=== PATIENT | female | born 2000 | race Hispanic/Latino ===

== ENCOUNTER 2018-11-20 23:37 | Emergency (ER) | payer BC ==
[2018-11-21] MEDS ORDERED: IBUPROFEN 400 MG TAB ONE (00:04)
[2018-11-21 00:47] LABS: Urine Blood 3+ (NEG); Urine Glucose NEGATIVE (NEG); Urine Protein 2+ (NEG); Urine Specific Gravity 1.025 (1.005-1.030)
[2018-11-21 00:49] LABS: Urine Bacteria 20-50 /HPF (<20); Urine Culture Reflex Order REFLEXED; Urine RBC 20-50 /HPF (NONE SEEN)
--- NOTE | 2018-11-21 01:15 | EDPHYS ---
Physician Documentation [facility] Name: Rosa Isela Cedeño Age: 18 yrs Sex: Female : 2000 Arrival Date: 11/20/2018 Time: 23:39 Bed 27 Private MD: Elizabeth Manzano K ED Physician Odilon Dove HPI: 11/21 01:18 This 18 yrs old Female presents to ER via Ambulatory with complaints of Fever, snw Chills, Vomiting, Shortness Of Breath. 01:18 The patient reports fever, that was measured at 104 degrees Fahrenheit. Onset: The snw symptoms/episode began/occurred suddenly, 2 day(s) ago, and became persistent. Modifying factors: there are no obvious modifying factors. Associated signs and symptoms: Pertinent positives: chills, decreased appetite, headache. Severity of symptoms: At their worst the symptoms were moderate severe. The patient has not experienced similar symptoms in the past. The patient has not recently seen a physician. Historical: - Allergies: 11/20 23:43 No Known Allergies; la1 - Home Meds: 23:43 None [Active]; la1 - PMHx: 23:43 None; la1 - PSHx: 23:43 Tonsillectomy; la1 - Immunization history:: Adult Immunizations up to date. - Social history:: Smoking status: Patient/guardian denies using tobacco. - Ebola Screening: : No symptoms or risks identified at this time. ROS: 11/21 01:17 Eyes: Negative for injury, pain, redness, and discharge, ENT: Negative for injury, snw pain, and discharge, Neck: Negative for injury, pain, and swelling, Cardiovascular: Negative for chest pain, palpitations, and edema, Respiratory: Negative for shortness of breath, cough, wheezing, and pleuritic chest pain. Back: Negative for injury and pain, : Negative for injury, bleeding, discharge, and swelling, MS/Extremity: Negative for injury and deformity, Skin: Negative for injury, rash, and discoloration. Constitutional: Positive for body aches, fever, malaise. Abdomen/GI: Positive for vomiting, x 1. Neuro: Positive for headache. Exam: 01:13 Constitutional: This is a well developed, well nourished patient who is awake, alert, snw and in no acute distress. Head/Face: Normocephalic, atraumatic. Eyes: Pupils equal round and reactive to light, extra-ocular motions intact. Lids and lashes normal. Conjunctiva and sclera are non-icteric and not injected. Cornea within normal limits. Periorbital areas with no swelling, redness, or edema. ENT: Nares patent. No nasal discharge, no septal abnormalities noted. Tympanic membranes are normal and external auditory canals are clear. Oropharynx with no redness, swelling, or masses, exudates, or evidence of obstruction, uvula midline. Mucous membranes moist. Neck: Trachea midline, no thyromegaly or masses palpated, and no cervical lymphadenopathy. Supple, full range of motion without nuchal rigidity, or vertebral point tenderness. No Meningismus. Chest/axilla: Normal chest wall appearance and motion. Nontender with no deformity. No lesions are appreciated. Cardiovascular: Regular rate and rhythm with a normal S1 and S2. No gallops, murmurs, or rubs. Normal PMI, no JVD. No pulse deficits. Respiratory: Lungs have equal breath sounds bilaterally, clear to auscultation and percussion. No rales, rhonchi or wheezes noted. No increased work of breathing, no retractions or nasal flaring. Abdomen/GI: Soft, non-tender, with normal bowel sounds. No distension or tympany. No guarding or rebound. No evidence of tenderness throughout. Back: No spinal tenderness. No costovertebral tenderness. Full range of motion. Skin: Warm, dry with normal turgor. Normal color with no rashes, no lesions, and no evidence of cellulitis. MS/ Extremity: Pulses equal, no cyanosis. Neurovascular intact. Full, normal range of motion. Neuro: Awake and alert, GCS 15, oriented to person, place, time, and situation. Cranial nerves II-XII grossly intact. Motor strength 5/5 in all extremities. Sensory grossly intact. Cerebellar exam normal. Normal gait. Psych: Awake, alert, with orientation to person, place and time. Behavior, mood, and affect are within normal limits. Vital Signs: 11/20 23:43 BP 150 / 79; Pulse 145; Resp 18; Temp 104.1; Pulse Ox 97% on R/A; Weight 86.18 kg; la1 Height 5 ft. 5 in. (165.10 cm); 11/21 00:53 Pulse 114; Resp 16; Temp 100.4; Pulse Ox 100% on R/A; la1 00:53 BP 120 / 53; la1 11/20 23:43 Body Mass Index 31.62 (86.18 kg, 165.10 cm) la1 MDM: 11/20 23:53 Patient medically screened. snw 11/21 01:17 Data reviewed: vital signs, nurses notes. Data interpreted: Pulse oximetry: on room air snw is 100 %. Interpretation: normal. Counseling: I had a detailed discussion with the patient and/or guardian regarding: the historical points, exam findings, and any diagnostic results supporting the discharge/admit diagnosis, lab results, radiology results, the need for outpatient follow up, to return to the emergency department if symptoms worsen or persist or if there are any questions or concerns that arise at home. Special discussion: Based on the patient's Hx, exam, and Dx evaluation, there is no indication for emergent surgery or inpatient Tx. It is understood by the patient/guardian that if the Sx's persist or worsen they need to return immediately for re-evaluation. Based on the history and exam findings, there is no indication for further emergent testing or inpatient evaluation. I discussed with the patient/guardian the need to see the primary care provider for further evaluation of the symptoms. 11/20 23:50 Order name: Urine Microscopic Only; Complete Time: 00:58 la1 11/20 23:52 Order name: Flu; Complete Time: 00:42 snw 11/20 23:52 Order name: Strep; Complete Time: 00:42 snw 11/21 00:04 Order name: Urine Dipstick--Ancillary (enter results); Complete Time: 00:48 ar5 11/21 00:04 Order name: Urine --Ancillary (enter results); Complete Time: 00:48 ar5 11/21 00:38 Order name: Throat Culture EDNY 11/20 23:50 Order name: Urine Dipstick-Ancillary (obtain specimen); Complete Time: 00:02 la11/20 23:50 Order name: Urine Test (obtain specimen); Complete Time: 00:02 la11/20 23:52 Order name: Chest Pa And Lat (2 Views) XRAY snw 11/21 00:57 Order name: Urine Culture EDMS Administered Medications: 11/20 23:51 Drug: Ibuprofen 800 mg Route: PO; la1 11/21 00:53 Follow up: Response: No adverse reaction; Temperature is decreased la1 01:45 Drug: Rocephin (cefTRIAXone) 1 grams Route: IM; Site: left gluteus; ak1 01:46 Follow up: Response: No adverse reaction ak1 01:45 Drug: Macrobid 100 mg Route: PO; ak1 01:45 Follow up: Response: Medication administered at discharge. ak1 02:13 Drug: Tylenol #3 (300 mg-30 mg) 1 tablet Route: PO; ak1 02:14 Follow up: Response: No adverse reaction; Medication administered at discharge. ak1 Disposition: 11/21/18 01:14 Discharged to Home. Impression: Urinary tract infection, site not specified, Fever presenting with conditions classified elsewhere. - Condition is Stable. - Discharge Instructions: Fever, Adult, Urinary Tract Infection, Adult, Rehydration, Adult. - Prescriptions for Augmentin 875- 125 mg Oral Tablet - take 1 tablet by ORAL route every 12 hours for 10 days; 20 tablet. Macrobid 100 mg Oral Capsule - take 1 capsule by ORAL route every 12 hours for 10 days; 20 capsule. promethazine 25 mg Oral Tablet - take 1 tablet by ORAL route every 6 hours As needed; 20 tablet. - Work release form, Medication Reconciliation Form, Thank You Letter, Antibiotic Education, Prescription Opioid Use form. - Follow up: Emergency Department; When: As needed; Reason: Worsening of condition. Follow up: Elizabeth Manzano MD; When: 2 - 3 days; Reason: Recheck today's complaints, Continuance of care, Re-evaluation by your physician. Signatures: Dispatcher [employer] EDNY Divya Mcnamara, AIYANA-C MUSEUM DIRECTOR-CsnCelm Jackson RN RN la1 Dee Maria RN RN ak1 Corrections: (The following items were deleted from the chart) 02:14 01:14 11/21/2018 01:14 Discharged to Home. Impression: Urinary tract infection, site ak1 not specified; Fever presenting with conditions classified elsewhere. Condition is Stable. Forms are Medication Reconciliation Form, Thank You Letter, Antibiotic Education, Prescription Opioid Use. Follow up: Emergency Department; When: As needed; Reason: Worsening of condition. Follow up: Elizabeth Manzano; When: 2 - 3 days; Reason: Recheck today's complaints, Continuance of care, Re-evaluation by your physician. snw
--- NOTE | 2018-11-21 01:15 | ER ---
Nurse's Notes [facility] Name: Rosa Isela Cedeño Age: 18 yrs Sex: Female : 2000 Arrival Date: 11/20/2018 Time: 23:39 Bed 27 Private MD: Elizabeth Manzano K Diagnosis: Urinary tract infection, site not specified;Fever presenting with conditions classified elsewhere Presentation: 11/20 23:44 Presenting complaint: Patient states: QUEEN and fever for the last two days, alternating la1 motrin and tylenol at home, last dose of tylenol at 2130. Transition of care: patient was not received from another setting of care. Onset of symptoms was November 20, 2018. Risk Assessment: Do you want to hurt yourself or someone else? Patient reports no desire to harm self or others. Initial Sepsis Screen: Does the patient meet any 2 criteria? Temp <36.0*C (96.8*F)) or > 38.3*C (100.9*F). HR > 90 bpm. Does the patient have a suspected source of infection? Yes: Other: Headache. Care prior to arrival: None. 23:44 Method Of Arrival: Ambulatory la1 23:44 Acuity: ARY 2 la1 Triage Assessment: 11/21 01:54 General: Appears in no apparent distress. Behavior is calm, cooperative. Pain: ak1 Complains of pain in scalp. EENT: No signs and/or symptoms were reported regarding the EENT system. Neuro: Level of Consciousness is awake, alert, obeys commands, Oriented to person, place, time, situation, Applications Coordinator are equal bilaterally Moves all extremities. Gait is steady, Speech is normal, Facial symmetry appears normal. Cardiovascular: No deficits noted. Respiratory: No deficits noted. GI: Reports nausea. : No signs and/or symptoms were reported regarding the genitourinary system. Derm: Reports fever. Musculoskeletal: No signs and/or symptoms reported regarding the musculoskeletal system. Historical: - Allergies: 11/20 23:43 No Known Allergies; la1 - Home Meds: 23:43 None [Active]; la1 - PMHx: 23:43 None; la1 - PSHx: 23:43 Tonsillectomy; la1 - Immunization history:: Adult Immunizations up to date. - Social history:: Smoking status: Patient/guardian denies using tobacco. - Ebola Screening: : No symptoms or risks identified at this time. Screenin:53 Abuse screen: Denies threats or abuse. Nutritional screening: No deficits noted. la1 Tuberculosis screening: No symptoms or risk factors identified. Fall Risk None identified. Assessment: 23:52 General: Appears in no apparent distress. Behavior is calm, cooperative. Pain: Denies la1 pain. Neuro: Level of Consciousness is awake, alert, obeys commands, Oriented to person, place, time, situation, Applications Coordinator are equal bilaterally Neck is supple, full ROM. Cardiovascular: Capillary refill < 3 seconds Patient's skin is warm and dry. Respiratory: Airway is patent Respiratory effort is even, unlabored, Respiratory pattern is regular, symmetrical. GI: Abdomen is non-distended, obese. : No signs and/or symptoms were reported regarding the genitourinary system. EENT: Throat is pink. Vital Signs: 23:43 BP 150 / 79; Pulse 145; Resp 18; Temp 104.1; Pulse Ox 97% on R/A; Weight 86.18 kg; la1 Height 5 ft. 5 in. (165.10 cm); 11/21 00:53 Pulse 114; Resp 16; Temp 100.4; Pulse Ox 100% on R/A; la1 00:53 BP 120 / 53; la1 11/20 23:43 Body Mass Index 31.62 (86.18 kg, 165.10 cm) la1 ED Course: 11/20 23:39 Patient arrived in ED. am2 23:39 Elizabeth Manzano MD is Private Physician. am2 23:44 Arm band placed on left wrist. la1 23:46 Triage completed. la1 23:51 Divya Mcnamara FNP-C is PHCP. snw 23:51 Odilon Dove MD is Attending Physician. snw 23:53 Patient has correct armband on for positive identification. la1 11/21 00:26 Chest Pa And Lat (2 Views) XRAY In Process Unspecified. EDMS 01:06 Dee Maria, RN is Primary Nurse. ak1 01:14 Elizabeth Manzano MD is Referral Physician. snw 01:53 No provider procedures requiring assistance completed. Patient did not have IV access ak1 during this emergency room visit. Administered Medications: 11/20 23:51 Drug: Ibuprofen 800 mg Route: PO; la1 11/21 00:53 Follow up: Response: No adverse reaction; Temperature is decreased la1 01:45 Drug: Rocephin (cefTRIAXone) 1 grams Route: IM; Site: left gluteus; ak1 01:46 Follow up: Response: No adverse reaction ak1 01:45 Drug: Macrobid 100 mg Route: PO; ak1 01:45 Follow up: Response: Medication administered at discharge. ak1 02:13 Drug: Tylenol #3 (300 mg-30 mg) 1 tablet Route: PO; ak1 02:14 Follow up: Response: No adverse reaction; Medication administered at discharge. ak1 Outcome: 01:14 Discharge ordered by . sntj 01:53 Discharged to home ambulatory, with family. ak1 01:53 Condition: stable 01:53 Discharge instructions given to patient, family, Instructed on discharge instructions, follow up and referral plans. no drinking with medication, no driving heavy equipment, medication usage, safe sex practices, Demonstrated understanding of instructions, follow-up care, medications, Prescriptions given X 3. 02:14 Patient left the ED. ak1 Signatures: Dispatcher [employer] EDMS Divya Mcnamara, [employer] NETWORK CONTROL TECHNICIAN-CsnClem Jackson RN RN Dee Garcia RN RN ak1 Candelaria Ayala
[2018-11-21] MEDS ORDERED: CEFTRIAXONE 1000 MG/VIAL ONE (01:45)
[2018-11-21] MEDS ORDERED: NITROFURAN MACRO 100 MG CAP PO ONE (01:45)
[2018-11-21] MEDS ORDERED: WATER FOR INJ,STERILE 10 ML ONE (01:45)
[2018-11-21] MEDS ORDERED: CODEINE 30MG/APAP 300MG TAB ONE (02:25)
--- NOTE | 2018-11-21 09:08 | RAD REPORT ---
EXAM DESCRIPTION: RAD - Chest Pa And Lat (2 Views) - 11/21/2018 12:26 am CLINICAL HISTORY: Fever COMPARISON: None. TECHNIQUE: PA and lateral views of the chest were obtained. FINDINGS: The lungs are clear. Heart size is normal and central vasculature is within normal limit s. No pleural effusion or pneumothorax seen. No acute bony finding noted. No aortic abnormality. IMPRESSION: No acute cardiopulmonary process.
== END 2018-11-21 02:14 | disposition home or self-care (01) ==
LOC: ER 23:37
DX: N39.0 Urinary tract infection, site not specified (principal)
CPT/HCPCS: 71046; 81003; 81015; 81025; 87070; 87081; 87086; 87088; 87804; 96372; 99283

== ENCOUNTER → 2023-06-30 | Emergency (ER) | payer BC ==
[~2023-06-30] MED LIST: DERMABOND SKIN ADHESIVE TOP ONE
--- OUTSIDE RECORDS SUMMARY | 2023-06-30 19:23 | XMS REPORT | Continuity of Care Document ---
Author Name Unknown Address [address] [facility] [address] [place] [address] [facility] thconnect Address [address] [facility] [address] [place] [address] Care Team Providers Care Mutuel Department Manager Name Role Phone Pcp, Patient Does Not Have A Primary Care Physic yuriy MD JONO Attending Clinician Unavailab JABARI Ballesteros Attending Clinician Unavailable NORRIS ROBERTS Attending Clinician Unavailable [email or web address] Attending Clinician Unavaila ble LAB90 Attending Clinician Unavailable Natasha Puri RN Attending Clinician Unavailab le Only, Ang Db Test Attending Clinician UnavailJovan Wolfe MD Attending Clinician JOVAN LAI Attending Clinician Unavailable Doctor Unassigned, Lucan Attending Clinician U navailable [email or web address] Admitting Clinician Unavaila ble Payers Payer Name Policy Type Policy Number Effective Date Expirati on Date Source BCBS 2 [id number] 2022 00:00:00 Problems Condition Name Condition Details Condition Category Status Onset Date Resolution Date Last Treatment Date Treating Clinician Comments Source Prediabete s Prediabete s Disease Active 2-14 00:00: 00 Olive Hall l Elevated liver enzymes Elevated liver enzymes Disease Active 06-30 00:00: 00 Olive Pompa - Externa l Mixed hyperlipid emia Mixed hyperlipid emia Disease Active 06-30 00:00: 00 Olive Pompa - Externa l Well adult exam Well adult exam Disease Active 06-02 00:00: 00 Olive Pompa - Externa l Class 2 obesity due to excess calories without serious comorbidit y with body mass index (BMI) of 37.0 to 37.9 in adult Class 2 obesity due to excess calories without serious comorbidit y with body mass index (BMI) of 37.0 to 37.9 in adult Disease Active 06-02 00:00: 00 Olive Pompa - Lloyda glenda Thrombocyt openia Thrombocyt openia Disease Active 06-02 00:00: 00 Olive Pompa - Externa l Acne rosacea Acne rosacea Disease Active 06-02 00:00: 00 Olive Pompa - Externa l Class 2 obesity due to excess calories without serious comorbidit y with body mass index (BMI) of 37.0 to 37.9 in adult Class 2 obesity due to excess calories without serious comorbidit y with body mass index (BMI) of 37.0 to 37.9 in adult Disease Active 06-02 00:00: 00 Olive Pompa - Externa glenda Allergies, Adverse Reactions, Alerts Allergy Name Allergy Type Status Severity Reaction(s) Onset Date Inactive Date Treating Clinician Comments Source NO KNOWN ALLERGIE S Drug Class Active [facility] Social History Social Habit Start Date Stop Date Quantity Comments Source History SDOH Alcohol Frequency Olive mays - External History SDOH Alcohol Std Drinks Olive crocker - External History SDOH Alcohol Binge Olive Pompa - External Sexual orientation K kirsty Pompa - External Exposure to SARS-CoV-2 (event) Not sure [facility] History of Social function 2023-02-14 00:00:00 2023-02-14 00:00:00 Olive Pompa - External Alcohol intake 2022-06-30 00:00:00 2022-06-30 00:00:00 Current drinker of alcohol (finding) Olive Pompa - External Education - What is the highest level of school you have completed or the highest degree you have received? 2022-06-02 00:00:00 2022-06-02 00:00:00 Associate degree: academic program Olive Cheney External Tobacco use and exposure 2022-06-02 00:00:00 2022-06-02 00:00:00 Smokeless tobacco non-user Olive Pompa - External Alcohol Comment 2022-06-02 00:00:00 2022-06-02 00:00:00 occasionally Olive Das Sex Assigned At 2000 00:00:00 2000 00:00:00 Olive Cheney External Smoking Status Start Date Stop Date Source Unknown if ever smoked [facility] Never smoked tobacco Olive Pompa - External Medications Ordered Medication Name Filled Medication Name Start Date Stop Date Current Medication? Ordering Clinician Indication Dosage Frequency Signature (SIG) Comments Components Source Lidocaine HCl (Lidocaine Viscous HCl) 2 % mouth/throa t Solution 2022-05 00:00: 00 Yes [id number] 15 mL swished in the mouth and spit out or swallow every 3 hours (maximum: 4.5 mg/kg [or 300 mg per dose]; 8 doses per 24-hour period). Oliev doshi Cetirizine (ZyrTEC Allergy) 10 MG oral Tablet 2022-05 00:00: 00 Yes [id number] 10mg Take 1 tablet (10 mg total) by mouth daily. Oilve doshi Semaglutide -Weight Management (Wegovy) 1 MG/0.5ML subcutaneou s Solution Auto-inject or 6-13 00:00: 00 Yes [id number] 1mg Inject 1 mg into the skin once a week Olive doshi Semaglutide (0.25 or 0.5 mg/dose) 2 mg/1.5 mL SQ Solution Pen-Injecto r -14 00:00: 00 Yes [id number] .5mg Inject 0.5 mg into the skin once a week Olive doshi Semaglutide (0.25 or 0.5 mg/dose) 2 mg/1.5 mL SQ Solution Pen-Injecto r 3-0 2-14 00:00: 00 06-30 00:00 :00 No [id number] .5mg Inject 0.5 mg into the skin once a week Olive doshi Semaglutide (0.25 or 0.5 mg/dose) 2 mg/1.5 mL SQ Solution Pen-Injecto r 2022-0 1-20 00:00: 00 06-30 00:00 :00 No [id number] .25mg Inject 0.25 mg into the skin once a week Olive Seorestesjosh Hall glenda Doxycycline Hyclate 100 MG oral Capsule 0 1- 00:00: 00 Yes 1{capsu le} Take 1 capsule by mouth daily Olive doshi METRONIDAZO LE, TOPICAL, 0.75 % apply externally Lotion 2022-0 - 00:00: 00 Yes APPLY THIN LAYER TOPICALLY TO FACE TWICE DAILY Olive doshi Doxycycline Hyclate 100 MG oral Capsule 0 - 00:00: 00 Yes 1{capsu le} Take 1 capsule by mouth daily Olive orestesjosh Hall glenda METRONIDAZO LE, TOPICAL, 0.75 % apply externally Lotion 0 - 00:00: 00 Yes APPLY THIN LAYER TOPICALLY TO FACE TWICE DAILY Olive doshi Doxycycline Hyclate 100 MG oral Capsule 0 - 00:00: 00 Yes 1{capsu le} Take 1 capsule by mouth daily Olive Desaia glenda METRONIDAZO LE, TOPICAL, 0.75 % apply externally Lotion 0 - 00:00: 00 Yes APPLY THIN LAYER TOPICALLY TO FACE TWICE DAILY Olive doshi Immunizations Ordered Immunization Name Filled Immunization Name Date Status Comments Source Covid-19 Vaccine Moderna (Spikevax), Mrna-lnp, [facility] [employer], 2020-09-04 00:00:00 Completed Olive Das Covid-19 Vaccine Moderna (Spikevax), Mrna-lnp, [employer], 2020-09-04 00:00:00 Completed Olive Seybold - External Covid-19 Vaccine Moderna (Spikevax), Mrna-lnp, [employer], Pf 2020-08-07 00:00:00 Completed Olive Seybold - External Covid-19 Vaccine Moderna (Spikevax), Mrna-lnp, Henry Protein, Pf 2020-08-07 00:00:00 Completed Olive Villaseñorybold - External Covid-19 Vaccine Moderna (Spikevax), Mrna-lnp, Henry Protein, Pf Unknown Completed Olive Villaseñorybold - External Covid-19 Vaccine Moderna (Spikevax), Mrna-lnp, Henry Protein, Pf Unknown Completed Olive Villaseñorybold - External Vital Signs Vital Name Observation Time Observation Value Comments S ource Systolic blood pressure 2022-06-30 19:33:00 136 mm[Hg] Olive Villaseñorybo ld - External Diastolic blood pressure 2022-06-30 19:33:00 74 mm[Hg] Olive Villaseñorybo ld - External Heart rate 2022-06-30 19:33:00 69 /min Kelse y Seybold - External Body temperature 2022-06-30 19:33:00 36.56 Krista Olive Villaseñorybold - External Respiratory rate 2022-06-30 19:33:00 14 /min Oilve Villaseñorybold - External Body height 2022-06-30 19:33:00 170.2 cm Dulce levy Seybold - External Body weight 2022-06-30 19:33:00 108.863 kg Dulce levy Seybold - External BMI 2022-06-30 19:33:00 37.59 kg/m2 Dulce levy Seybold - External Oxygen saturation in Arterial blood by Pulse oximetry 2022-06-30 19:33:00 99 /min Olive Roacho ld - External Systolic blood pressure 2022-06-02 19:23:00 118 mm[Hg] Olive Vlilaseñorybo ld - External Diastolic blood pressure 2022-06-02 19:23:00 67 mm[Hg] Olive Villaseñorybo ld - External Heart rate 2022-06-02 19:23:00 63 /min Kelse y Seybold - External Body temperature 2022-06-02 19:23:00 36.78 Krista Olive Seybold - External Respiratory rate 2022-06-02 19:23:00 15 /min Olive Seobi - External Body height 2022-06-02 19:23:00 170.2 cm Dulce Pompa - External Body weight 2022-06-02 19:23:00 111.313 kg Dulce Pompa - External BMI 2022-06-02 19:23:00 38.44 kg/m2 Dulce Pompa - External Oxygen saturation in Arterial blood by Pulse oximetry 2022-06-02 19:23:00 98 /min Olive Ibarra ld - External Procedures Procedure Date / Time Performed Performing Clinicia n Source CONSENT/REFUSAL FOR DIAGNOSIS AND TREATMENT 2021-01-20 19:51:57 Doctor Unassigned, Lucan [facility] ASSIGNMENT OF BENEFITS 2021-01-20 19:51:46 Docto r Unassigned, Lucan [facility] Encounters Start Date/Time End Date/Time Encounter Type Admission Type Attending [facility] Care Department Encounter ID Source 2023-04-02 00:00:00 2023-04-02 00:00:00 Outpatient MD OLIVE DEAN [id number] [facility] 2023-04-01 14:00:00 2023-04-01 14:00:00 Outpatient JABARI WHITTAKER [id number] [facility] 2023-04-01 00:00:00 2023-04-01 00:00:00 Outpatient NORRIS ROBERTS [id number] [facility] 2023-03-17 00:00:00 2023-03-17 00:00:00 Outpatient [email or web address] diyala_S [facility] [id number] [facility] 2022-11-10 00:00:00 2022-11-10 00:00:00 Outpatient NORRIS ROBERTS [id number] Olive Pompa 2022-10-27 00:00:00 2022-10-27 00:00:00 Outpatient NORRIS ROBERTS [id number] Olive Pompa 2022-10-27 00:00:00 2022-10-27 00:00:00 Outpatient PREZAS, NORRIS CARPIO OLIVE [id number] [facility] 2022-10-26 00:00:00 2022-10-26 00:00:00 Outpatient PREZAS, NORRIS CARPIO OLIVE [id number] [facility] 2022-10-15 09:45:00 2022-10-15 09:45:00 Outpatient PREZAS, NORRIS CARPIO OLIVE [id number] [facility] 2022-10-15 00:00:00 2022-10-15 00:00:00 Outpatient PREZAS, NORRIS CARPIO OLIVE [id number] [facility] 2022-10-07 00:00:00 2022-10-07 00:00:00 Outpatient PREZAS, NORRIS CARPIO OLIVE [id number] [facility] 2022-10-07 00:00:00 2022-10-07 00:00:00 Outpatient PREZAS, NORRIS [facility] [id number] [facility] 2022-10-07 00:00:00 2022-10-07 00:00:00 Outpatient PREZAS, NORRIS GOETZVANESA CARPIO [id number] [facility] 2022-09-29 08:00:00 2022-09-29 08:00:00 Outpatient PREZAS, NORRIS GOETZVANESA CARPIO [id number] [facility] 2022-08-13 00:00:00 2022-08-13 00:00:00 Outpatient PREZAS, NORRIS OLIVE CARPIO [id number] [facility] 2022-08-13 00:00:00 2022-08-13 00:00:00 Outpatient PREZAS, NORRIS OLIVE CARPIO [id number] [facility] 2022-07-31 00:00:00 2022-07-31 00:00:00 Outpatient PREZAS, NORRIS OLIVE ACRPIO [id number] [facility] 2022-07-15 00:00:00 2022-07-15 00:00:00 Outpatient PREZAS, NORRIS OLIVE CARPIO [id number] [facility] 2022-06-30 13:30:00 2022-06-30 13:30:00 Outpatient PREZANORRIS Banks [id number] Olive Pompa 2022-06-19 10:30:00 2022-06-19 10:30:00 Outpatient OLIVE OLIVE [id number] Olive Pompa 2022-06-19 00:00:00 2022-06-19 00:00:00 Outpatient MD OLIVE DEAN [id number] Olive Villaseñorjosh 2022-06-03 00:00:00 2022-06-03 00:00:00 Outpatient NORRIS ROBERTS OLIVE [id number] Olive Pompa 2022-06-03 00:00:00 2022-06-03 00:00:00 Outpatient NORRIS ROBERTS OLIVE [id number] [facility] 2022-06-02 14:15:00 2022-06-02 14:15:00 Outpatient LAB90 OLIVE CARPIO [id number] [facility] 2022-06-02 13:30:00 2022-06-02 13:30:00 Outpatient NOR[facility]IS ROBERTS [id number] [facility] 2021-01-21 00:00:00 2021-01-21 00:00:00 Letter (Out) Natasha Puri [facility] 1..840.114 [id number] [facility] 2021-01-20 14:52:57 2021-01-20 15:07:57 Laboratory Only Only, Ang Jovan Srivastava [facility] 1..840.114 [id number] [facility] 2021-01-20 15:00:00 2021-01-20 15:00:00 Outpatient JOVAN GARCÍA [facility] [id number] [facility] 2021-01-20 00:00:00 2021-01-20 00:00:00 Letter (Out) Doctor Unassigned, Lucan [facility] [id number] [facility] 2021-01-20 00:00:00 2021-01-20 00:00:00 Letter (Out) Doctor Unassigned, Lucan [facility] [id number] [facility] 2021-01-20 00:00:00 2021-01-20 00:00:00 Orders Only Doctor Unassigned, Lucan [facility] [id number] [facility]
--- NOTE | 2023-06-30 19:59 | RAD REPORT ---
EXAM DESCRIPTION: RAD - Foot Left 3 View - 06/30/2023 7:51 pm CLINICAL HISTORY: PAIN COMPARISON: No comparisons FINDINGS: No acute fracture or dislocation is seen. If pain persists, MRI followup would be recommen ded.
--- NOTE | 2023-06-30 20:25 | ER ---
Nurse's Notes [facility] Name: Rosa Isela Cedeño Age: 23 yrs Sex: Female : 2000 Arrival Date: 06/30/2023 Time: 19:19 Bed 11 Private MD: Diagnosis: Pain in left foot;Laceration without foreign body of foot Presentation: 06/30 19:29 Chief complaint: Patient states: slipped a fell about 1 hour ago on tile floor; pt km8 noted to have an abrasion with a small laceration to lateral side of left ankle and some swelling; pt able to walk without assistance. Coronavirus screen: Client denies travel out of the [place] in the last 14 days. Ebola Screen: No symptoms or risks identified at this time. Initial Sepsis Screen: Does the patient meet any 2 criteria? HR > 90 bpm. No. Patient's initial sepsis screen is negative. Does the patient have a suspected source of infection? No. Patient's initial sepsis screen is negative. Risk Assessment: Do you want to hurt yourself or someone else? Patient reports no desire to harm self or others. Onset of symptoms was June 30, 2023 at 18:30. 19:29 Method Of Arrival: Ambulatory km8 19:29 Acuity: ARY 4 km8 Triage Assessment: 19:30 General: Appears in no apparent distress. comfortable, Behavior is calm, cooperative, km8 appropriate for age. Pain: Complains of pain in left lateral ankle Pain currently is 5 out of 10 on a pain scale. EENT: No signs and/or symptoms were reported regarding the EENT system. Neuro: Level of Consciousness is awake, alert, obeys commands, Oriented to person, place, time, situation. Cardiovascular: Denies chest pain, shortness of breath, Capillary refill < 3 seconds Patient's skin is warm and dry. Respiratory: Airway is patent Respiratory effort is even, unlabored, Respiratory pattern is regular, symmetrical. GI: No signs and/or symptoms were reported involving the gastrointestinal system. : No signs and/or symptoms were reported regarding the genitourinary system. Derm: Skin is healthy with good turgor, Skin is dry, Skin is normal, Skin temperature is warm Wound noted left lateral ankle Wound is abrasion with small laceration. Musculoskeletal: Circulation, motion, and sensation intact. Range of motion: intact in all extremities, Swelling present in left lateral ankle. 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 - Social history:: Smoking status: Patient denies any tobacco usage or history of. Patient uses alcohol, occasionally. Patient/guardian denies using street drugs. Screenin:42 [facility] ED Fall Risk Assessment (Adult) History of falling in the last 3 months, bp including since admission No falls in past 3 months (0 pts). Abuse screen: Denies threats or abuse. Denies injuries from another. Nutritional screening: No deficits noted. Tuberculosis screening: No symptoms or risk factors identified. Vital Signs: 19:29 BP 155 / 93; Pulse 95; Resp 16; Temp 98.9(TE); Pulse Ox 98% on R/A; Weight 97.52 kg 8 (R); Height 5 ft. 7 in. (R); Pain 5/10; 19:29 Body Mass Index 33.67 (97.52 kg, 170.18 cm) [facility] 19:29 Pain Scale: Adult [facility] ED Course: 19:23 Patient arrived in ED. gm2 19:24 [facility] Lo [facility]C [facility] kb 19:24 Gregorio Salazar MD is Attending Physician. kb 19:30 Triage completed. [facility] 19:30 Arm band placed on right wrist. 8 19:38 Jarvis Sears, BERRY is Primary Nurse. bp 19:53 Foot Left 3 View XRAY In Process Unspecified. EDMS 20:42 Patient has correct armband on for positive identification. bp 20:42 Assist provider with laceration repair on left foot that was 2.5 cm. or less using bp Dermabond. Performed by Sonia DAVIS. Patient did not have IV access during this emergency room visit. Administered Medications: No medications were administered Outcome: 20:25 Discharge ordered by . kb 20:42 Discharged to home ambulatory, with family, bp 20:42 Condition: stable 20:42 Discharge instructions given to patient, Instructed on discharge instructions, follow up and referral plans. wound care, Demonstrated understanding of instructions, follow-up care, wound care, 20:43 Patient left the ED. bp Signatures: Dispatcher [employer] EDSonia Cruz, JOINT RUNNER-C JOINT RUNNER-Jarvis Silva, RN RN Caitlyn Roy 2 Nubia Houser RN RN km8
--- NOTE | 2023-06-30 20:25 | EDPHYS ---
Physician Documentation [facility] Name: Rosa Isela Cedeño Age: 23 yrs Sex: Female : 2000 Arrival Date: 06/30/2023 Time: 19:19 Bed 11 Private MD: ED Physician Gregorio Salazar HPI: 06/30 20:26 This 23 yrs old Female presents to ER via Ambulatory with complaints of Fall kb Injury, Foot Pain. 20:26 Patient is a 23-year-old female with no medical history who presents for pain and kb laceration to the left foot that occurred after a slip and fall at [employer] 1 hour prior to arrival. Ambulates with steady gait.. 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 - Social history:: Smoking status: Patient denies any tobacco usage or history of. Patient uses alcohol, occasionally. Patient/guardian denies using street drugs. ROS: 20:26 Constitutional: Negative for fever, chills, and weight loss, kb 20:26 MS/extremity: Positive for pain, of the dorsum of left foot, 20:26 Skin: Positive for laceration(s), of the dorsum of left foot, 20:26 All other systems are negative, Exam: 20:26 Constitutional: This is a well developed, well nourished patient who is awake, alert, kb and in no acute distress. Head/Face: Normocephalic, atraumatic. ENT: Moist Mucous membranes Cardiovascular: Regular rate Respiratory: Respirations even and unlabored. No increased work of breathing. Talking in full sentences Skin: Warm, dry with normal turgor. Normal color. Neuro: Awake and alert, GCS 15, oriented to person, place, time, and situation. Moves all extremities. Normal gait. 20:26 Musculoskeletal/extremity: Extremities: grossly normal except: noted in the dorsum of left foot: laceration, pain, tenderness, ROM: intact in all extremities, Circulation is intact in all extremities. Sensation intact. Weight bearing: able to fully bear weight, Vital Signs: 19:29 BP 155 / 93; Pulse 95; Resp 16; Temp 98.9(TE); Pulse Ox 98% on R/A; Weight 97.52 kg 8 (R); Height 5 ft. 7 in. (R); Pain 5/10; 19:29 Body Mass Index 33.67 (97.52 kg, 170.18 cm) [facility] 19:29 Pain Scale: Adult [facility] Laceration: 20:28 Wound Repair of 0.5cm ( 0.2in ) subcutaneous laceration to dorsum of left foot. Linear kb shaped.. Distal neuro/vascular/tendon intact. Wound prep: Simple cleansing with hibiclenz by nurse. Skin closed with thin layer Adhesive skin closure using Dermabond. Patient tolerated well. MDM: 19:24 Patient medically screened. kb 20:28 Differential diagnosis: abrasion, contusion, fracture, sprain. Data reviewed: vital kb signs, nurses notes. Counseling: I had a detailed discussion with the patient and/or guardian regarding the historical points, exam findings, and any diagnostic results supporting the discharge/admit diagnosis, radiology results, the need for outpatient follow up, a family practitioner, to return to the emergency department if symptoms worsen or persist or if there are any questions or concerns that arise at home. 06/30 19:27 Order name: Foot Left 3 View XRAY; Complete Time: 20:03 kb 06/30 19:27 Order name: Wound Care: clean; Complete Time: 19:55 kb 06/30 19:27 Order name: Dermabond; Complete Time: 19:55 kb Administered Medications: No medications were administered Disposition: 07/01 19:59 Co-signature as Attending Physician, Gregorio Salazar MD I reviewed the patient's care rt provided by the Advanced Practice Provider and agree with the diagnosis and treatment plan. Disposition Summary: 06/30/23 20:25 Discharge Ordered Notes: Location: Home kb Condition: Stable kb Diagnosis - Pain in left foot kb - Laceration without foreign body of foot kb Followup: kb - With: Emergency Department - When: As needed - Reason: Worsening of condition Followup: kb - With: Private Physician - When: 2 - 3 days - Reason: Recheck today's complaints, Continuance of care, Re-evaluation by your physician Discharge Instructions: - Discharge Summary Sheet kb - Musculoskeletal Pain kb - Laceration Care, Adult, [id number] kb Forms: - Medication Reconciliation Form kb - Thank You Letter kb - Antibiotic Education kb - Prescription Opioid Use kb - Patient Portal Instructions kb - Leadership Thank You Letter kb Signatures: Dispatcher [employer] Sonia Mackey, WET PAN MIXER-C WET PAN MIXER-CkGregorio Robbins MD MD rt Marx, Katie RN RN km8
[2023-06-30 21:00] VITALS: BP 155/93; TEMP 98.9; O2SAT 98
== END ==
LOC: ER 19:19
PROC: 0HQNXZZ Repair Left Foot Skin, External Approach (ICD-10-PCS; principal; 2023-06-30)
DX: S91.312A Laceration without foreign body, left foot, initial encounter (principal)

== ENCOUNTER 2024-04-26 15:07 | Emergency (ER) | payer BC ==
--- OUTSIDE RECORDS SUMMARY | 2024-04-26 15:10 | XMS REPORT | Continuity of Care Document ---
Author Name Unknown Address [address] [place] [address] [facility] thconnect Address 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 Name Role Phone Pcp, Patient Does Not Have A Primary Care Physic yuriy NORRIS ROBERTS Attending Clinician Unavailable MD JONO Attending Clinician Unavailab JABARI Ballesteros Attending Clinician Unavailable [email or web address] Attending Clinician Unavaila ble LAB90 Attending Clinician Unavailable Natasha Puri RN Attending Clinician Unavailab le Only, Ang Db Test Attending Clinician UnavailJovan Wolfe MD Attending Clinician JOVAN RODGERS Attending Clinician Unavailable Doctor Unassigned, Clifford Attending Clinician U navailable [email or web address] Admitting Clinician Unavaila ble Payers Payer Name Policy Type Policy Number Effective Date Expirati on Date Source BCBS 2 [id number] 2022 00:00:00 Problems Condition Name Condition Details Condition Category Status Onset Date Resolution Date Last Treatment Date Treating Clinician Comments Source Prediabete s Prediabete s Disease Active 2-14 00:00: 00 Olive Seybold - Externa l Elevated liver enzymes Elevated liver enzymes [...] 06-02 00:00: 00 Olive Pompa - Lloyda l Thrombocyt openia Thrombocyt openia Disease Active 06-02 [...] 00:00: 00 Olive Pompa - Externa l Allergies, Adverse Reactions, Alerts Allergy Name Allergy Type Status Severity Reaction(s) Onset Date Inactive Date Treating Clinician Comments Source NO KNOWN ALLERGIE S Drug Class Active [facility] Social History Social Habit Start Date Stop Date Quantity Comments Source Exposure to SARS-CoV-2 (event) Not sure [facility] History SDOH Alcohol Frequency Olive mays - External History SDOH Alcohol Std Drinks Olive crocker - External History SDOH Alcohol Binge Olive Pompa - External Sexual orientation Paz Pompa - External History of Social function 2023-02-14 00:00:00 2023-02-14 00:00:00 Olive Pompa - External Alcohol intake 2022-06-30 00:00:00 2022-06-30 00:00:00 Current drinker of alcohol (finding) Olive Pompa - External Education - What is the highest level of school you have completed or the highest degree you have received? 2022-06-02 00:00:00 2022-06-02 00:00:00 Associate degree: academic program Olive Pompa - External Tobacco use and exposure 2022-06-02 00:00:00 2022-06-02 00:00:00 Smokeless tobacco non-user Olive Pompa - External Alcohol Comment 2022-06-02 00:00:00 2022-06-02 00:00:00 occasionally Olive Das Sex Assigned At 2000 00:00:00 2000 00:00:00 Olive Cheney External Smoking Status Start Date Stop Date Source Unknown if ever smoked [facility] Never smoked tobacco Olive Pompa - External Medications Ordered Medication Name Filled Medication Name Start Date Stop Date Current Medication? Ordering Clinician Indication Dosage Frequency Signature (SIG) Comments Components Source Lidocaine HCl (Lidocaine Viscous HCl) 2 % mouth/throa t Solution 2022-05 00:00: 00 Yes [id number] 15 mL swished in the mouth and spit out or swallow every 3 hours (maximum: 4.5 mg/kg [or 300 mg per dose]; 8 doses per 24-hour period). Olive doshi Cetirizine (ZyrTEC Allergy) 10 MG oral Tablet 2022-05 00:00: 00 Yes [id number] 10mg Take 1 tablet (10 mg total) by mouth daily. Olive doshi Semaglutide -Weight Management (Wegovy) 1 MG/0.5ML subcutaneou s Solution Auto-inject or -13 00:00: 00 Yes [id number] 1mg Inject 1 mg into the skin once a week Olive doshi Semaglutide (0.25 or 0.5 mg/dose) 2 mg/1.5 mL SQ Solution Pen-Injecto r - 00:00: 00 06-30 00:00 :00 No [id number] .5mg Inject 0.5 mg into the skin once a week Olive Seybold - Externa l Semaglutide (0.25 or 0.5 mg/dose) 2 mg/1.5 mL SQ Solution Pen-Injecto r 1-20 00:00: 00 06-30 00:00 :00 No [id number] .25mg Inject 0.25 mg into the skin once a week Olive doshi Doxycycline Hyclate 100 MG oral Capsule 05-26 00:00: 00 Yes 1{capsu le} Take 1 capsule by mouth daily Olvie doshi METRONIDAZO LE, TOPICAL, 0.75 % apply externally Lotion 05-26 00:00: 00 Yes APPLY THIN LAYER TOPICALLY TO FACE TWICE DAILY Olive doshi Immunizations Ordered Immunization Name Filled Immunization Name Date Status Comments Source Covid-19 Vaccine Moderna (Spikevax), Mrna-lnp, Henry Protein, Pf 2020-09-04 00:00:00 Completed Olive Cheney External Covid-19 Vaccine Moderna (Spikevax), Mrna-lnp, Henry Protein, Pf 2020-09-04 00:00:00 Completed Olive Cheney External Covid-19 Vaccine Moderna (Spikevax), Mrna-lnp, Henry Protein, Pf 2020-08-07 00:00:00 Completed Olive Cheney External Covid-19 Vaccine Moderna (Spikevax), Mrna-lnp, Henry Protein, Pf 2020-08-07 00:00:00 Completed Olive Cheney External Covid-19 Vaccine Moderna (Spikevax), Mrna-lnp, Henry Protein, Pf Unknown Completed Olive Cheney External Vital Signs Vital Name Observation Time Observation Value Comments S veritosukhjinder Systolic blood pressure 2022-06-30 19:33:00 136 mm[Hg] Olive Ibarra ld - External Diastolic blood pressure 2022-06-30 19:33:00 74 mm[Hg] Olive Ibarra ld - External Heart rate 2022-06-30 19:33:00 69 /min Angela Pompa - External Body temperature 2022-06-30 19:33:00 36.56 Krista Olive Pompa - External Respiratory rate 2022-06-30 19:33:00 14 /min Olive Seybold - External Body height 2022-06-30 19:33:00 170.2 cm Dulce ey Seybold - External Body weight 2022-06-30 19:33:00 108.863 kg Dulce ey Seybold - External BMI 2022-06-30 19:33:00 37.59 kg/m2 Dulce ey Seybold - External Oxygen saturation in Arterial blood by Pulse oximetry 2022-06-30 19:33:00 99 /min Olivevanesa Roacho ld - External Systolic blood pressure 2022-06-02 19:23:00 118 mm[Hg] Olive Villaseñorybo ld - External Diastolic blood pressure 2022-06-02 19:23:00 67 mm[Hg] Olivevanesa Roacho ld - External Heart rate 2022-06-02 19:23:00 63 /min Angela mohan Seybold - External Body temperature 2022-06-02 19:23:00 36.78 Krista Olive Villaseñorybold - External Respiratory rate 2022-06-02 19:23:00 15 /min Olive Seybold - External Body height 2022-06-02 19:23:00 170.2 cm Dulce ey Seybold - External Body weight 2022-06-02 19:23:00 111.313 kg Dulce ey Seybold - External BMI 2022-06-02 19:23:00 38.44 kg/m2 Dulce ey Seybold - External Oxygen saturation in Arterial blood by Pulse oximetry 2022-06-02 19:23:00 98 /min Olive Roacho ld - External Procedures Procedure Date / Time Performed Performing Clinicia n Source CONSENT/REFUSAL FOR DIAGNOSIS AND TREATMENT 2021-01-20 19:51:57 Doctor Unassigned, Clifford [facility] ASSIGNMENT OF BENEFITS 2021-01-20 19:51:46 Docto r Unassigned, Clifford [facility] Encounters Start Date/Time End Date/Time Encounter Type Admission Type Attending [facility] Care Facility Care Department Encounter ID Source 2023-07-01 00:00:00 2023-07-01 00:00:00 Outpatient NORRIS ROBERTS [id number] Olive Pompa 2023-04-02 00:00:00 2023-04-02 00:00:00 Outpatient MD [facility] DEAN [id number] [facility]23-04-01 14:00:00 2023-04-01 14:00:00 Outpatient BECCAYisselJABARI BAER OLIVE CARPIO [id number] [facility] 2023-04-01 00:00:00 2023-04-01 00:00:00 Outpatient PREZADarren, NORRIS OLIVE CARPIO [id number] [facility] 2023-03-17 00:00:00 2023-03-17 00:00:00 Outpatient [email or web address] [email or web address]_S PRIV [facility] [id number] [facility] 2022-11-10 00:00:00 2022-11-10 00:00:00 Outpatient PREZAS, NORRIS [facility] [id number] [facility] 2022-10-27 00:00:00 2022-10-27 00:00:00 Outpatient PREZAS, NORRISMIKO CARPIO [id number] [facility] 2022-10-27 00:00:00 2022-10-27 00:00:00 Outpatient PREZAS, NORRIS OLIVE CARPIO [id number] [facility] 2022-10-26 00:00:00 2022-10-26 00:00:00 Outpatient PREZAS, NORRISMIKO CARPIO [id number] [facility] 2022-10-15 09:45:00 2022-10-15 09:45:00 Outpatient PREZAS, NORRISMIKO CARPIO [id number] [facility] 2022-10-15 00:00:00 2022-10-15 00:00:00 Outpatient PREZAS, NORRISMIKO CARPIO [id number] [facility] 2022-10-07 00:00:00 2022-10-07 00:00:00 Outpatient PREZAS, NORRIS CARPIO [id number] [facility] 2022-10-07 00:00:00 2022-10-07 00:00:00 Outpatient PREZAS, NORRISMIKO CARPIO [id number] [facility] 2022-10-07 00:00:00 2022-10-07 00:00:00 Outpatient PREZAS, NORRIS CARPIO OLIVE [id number] Olive Pompa 2022-09-29 08:00:00 2022-09-29 08:00:00 Outpatient PREZAS, NORRIS CARPIO OLIVE [id number] Olive Pompa 2022-08-13 00:00:00 2022-08-13 00:00:00 Outpatient PREZAS, NORRIS CARPIO OLIVE [id number] Olive Villaseñorjosh 2022-08-13 00:00:00 2022-08-13 00:00:00 Outpatient PREZAS, NORRIS GOETZVANESA CARPIO [id number] [facility] 2022-07-31 00:00:00 2022-07-31 00:00:00 Outpatient PREZAS, NORRIS OLIVE CARPIO [id number] [facility] 2022-07-15 00:00:00 2022-07-15 00:00:00 Outpatient PREZAS, NORRIS OLIVE CARPIO [id number] [facility] 2022-06-30 13:30:00 2022-06-30 13:30:00 Outpatient PREZAS, NORRIS OLIVE CARPIO [id number] [facility] 2022-06-19 10:30:00 2022-06-19 10:30:00 Outpatient OLIVE CARPIO [id number] [facility] 2022-06-19 00:00:00 2022-06-19 00:00:00 Outpatient MD OLIVE DEAN [id number] [facility] 2022-06-03 00:00:00 2022-06-03 00:00:00 Outpatient PREZAS, NORRIS OLIVE CARPIO [id number] [facility] 2022-06-03 00:00:00 2022-06-03 00:00:00 Outpatient PREZAS, NORRIS OLIVE CARPIO [id number] Olive Seybold 2022-06-02 14:15:00 2022-06-02 14:15:00 Outpatient LAB OLIVE CARPIO [id number] [facility] 2022-06-02 13:30:00 2022-06-02 13:30:00 Outpatient NORRIS ROBERTS [id number] Olive Pompa 2021-01-21 00:00:00 2021-01-21 00:00:00 Letter (Out) JaxsonNatasha [facility] 1.114 [id number] [facility] 2021-01-20 14:52:57 2021-01-20 15:07:57 Laboratory Only Only, Ang Db Test Jovan Rodgers [facility] 1.114 [id number] [facility] 2021-01-20 15:00:00 2021-01-20 15:00:00 Outpatient R JOVAN RODGERS [facility] [id number] [facility] 2021-01-20 00:00:00 2021-01-20 00:00:00 Letter (Out) Doctor Unassigned, Clifford [facility] 1.114 [id number] [facility] 2021-01-20 00:00:00 2021-01-20 00:00:00 Letter (Out) Doctor Unassigned, Clifford [facility] 1.114 [id number] [facility] 2021-01-20 00:00:00 2021-01-20 00:00:00 Orders Only Doctor Unassigned, Clifford [facility] 1.2114 [id number] [facility]
[2024-04-26] MEDS ORDERED: ACETAMINOPHEN 500 MG TAB ONE (15:44)
[2024-04-26] MEDS ORDERED: NA CHLORIDE 0.9% 1,000 ML ONE (15:45)
[2024-04-26] MEDS ORDERED: IBUPROFEN 400 MG TAB ONE (15:45)
--- NOTE | 2024-04-26 15:57 | RAD REPORT ---
EXAMINATION: ONE VIEW CHEST XR CLINICAL INDICATION: COUGH TECHNIQUE: Frontal chest projection is submitted. Examination is limited by patient positioning and t echnique. COMPARISON: 12/01/2018 FINDINGS: The lungs are well inflated and clear. The heart is normal in size. No displaced fractures identified . IMPRESSION: No acute intrathoracic abnormalities.
--- NOTE | 2024-04-26 16:14 | RAD REPORT ---
EXAM: CT brain without contrast HISTORY: Dizziness;Headache COMPARISON: None TECHNIQUE: Multiple contiguous axial images were obtained and a CT of the brain without contrast. Sag ittal and coronal reformats were performed. One or more of the following dose reduction techniques were used: Automated exposure control, adjust ment of the mA and/or kV according to patient size, and/or iterative reconstruction. FINDINGS: No evidence of hydrocephalus, intracranial hemorrhage, or extra-axial fluid collection. The brain is normal in morphology. No evidence of midline shift or areas of brain edema. The calvarium is intact. The visualized paranasal sinuses and mastoid air cells are essentially clear . IMPRESSION: No evidence of acute intracranial abnormality.
[2024-04-26 16:15] LABS: Specific Gravity 1.017 (1.005-1.030); Urine Bacteria <20 /HPF (<20); Urine Bilirubin NEGATIVE (Negative); Urine Blood 3+ (Negative); Urine Clarity Extremely Turbid (Clear); Urine Color Yellow (Yellow); Urine Crystals Unidentified Few /HPF (None Seen); Urine Culture Reflex Order REFLEXED; Urine Glucose NEGATIVE (Negative); Urine Ketones NEGATIVE (Negative); Urine Micro Reflex YN NO BILL MICROSCOPIC; Urine Mucus Slight /HPF (None Seen); Urine Nitrite NEGATIVE (Negative); Urine Protein 1+ (Negative); Urine RBC >50 /HPF (None Seen); Urine Urobilinogen Normal (Normal); Urine WBC >50 /HPF (<5); Urine WBC Clump Occasional /HPF (None Seen); Urine Yeast (Budding) Few /HPF (None Seen)
[2024-04-26 16:16] LABS: Absolute Lymphocytes (CBC) 0.6 K/uL (0.7-4.9); Absolute Monocytes 0.2 K/uL (0.1-1.3); Basophils % 0.2 % (0-1.3); Eosinophils % 0.2 % (0-4.4); Hematocrit 29.1 % (36.0-45.0); Hemoglobin 9.5 g/dL (12.0-15.0); Lymphocytes % 11.1 % (15.3-44.8); MCH 26.5 pg (27.0-35.0); MCHC 32.8 g/dL (32.0-36.0); MCV 80.8 fL (80-100); Monocytes % 3.7 % (3.3-12.3); Neutrophils % 84.8 % (41.7-73.7); Platelets 145 thou/uL (152-406)
[2024-04-26 16:27] LABS: Anion Gap 12.2 mEq/L (5.0-15.0); Potassium 3.2 mEq/L (3.5-5.1)
[2024-04-26 16:45] LABS: SARS-CoV-2 Antigen CONTROL BLUE LINE VIS/BG OK; SARS-CoV-2 Antigen Rapid Res Positive (Negative)
--- NOTE | 2024-04-26 17:09 | ER ---
Nurse's Notes [facility] Name: Rosa Isela Cedeño Age: 23 yrs Sex: Female : 2000 Arrival Date: 04/26/2024 Time: 15:07 Bed 5 Private MD: Diagnosis: SARS-associated coronavirus as the cause of diseases classified elsewhere Presentation: 04/26 15:23 Chief complaint: Patient states: Fever and QUEEN since Wednesday. SOB, felt very hot today ll1 while driving home. Mom noticed some slurred speech that has since resolved. Coronavirus screen: Client denies travel out of the [place] in the last 14 days. difficulty breathing, fatigue, fever, headache, shortness of breath, Client presents with at least one sign or symptom that may indicate coronavirus-19. Standard/surgical mask placed on the client. Ebola Screen: Patient denies travel to an Ebola-affected area in the 21 days before illness onset. Initial Sepsis Screen: Does the patient meet any 2 criteria? No. Patient's initial sepsis screen is negative. Does the patient have a suspected source of infection? No. Patient's initial sepsis screen is negative. Risk Assessment: Do you want to hurt yourself or someone else? Patient reports no desire to harm self or others. Onset of symptoms was April 21, 2024. 15:23 Method Of Arrival: Ambulatory ll1 15:23 Acuity: ARY 2 ll1 Triage Assessment: 15:25 General: Appears distressed, uncomfortable, ill, Behavior is cooperative, appropriate ll1 for age, anxious. General: Reports chills for fever for feeling ill for fatigue for. Pain: Complains of pain in head Quality of pain is described as aching. Neuro: Reports headache weakness. Historical: - Allergies: 15:16 No Known Allergies; ll1 - PMHx: 15:22 None; ll1 - PSHx: 15:22 Tonsillectomy; ll1 - Immunization history:: Adult Immunizations up to date. - Infectious Disease History:: Denies. - Social history:: Smoking status: Reported history of juuling and/or vaping. Screenin:24 [facility] ED Fall Risk Assessment (Adult) History of falling in the last 3 months, bp including since admission No falls in past 3 months (0 pts) Confusion or Disorientation No (0 pts) Intoxicated or Sedated No (0 pts) Impaired Gait Yes (1 pt) Mobility Assist Device Used No (0 pt) Altered Elimination No (0 pt) Score/Fall Risk Level 0 - 2 = Low Risk Oriented to surroundings. Abuse screen: Denies threats or abuse. Denies injuries from another. Nutritional screening: No deficits noted. Tuberculosis screening: No symptoms or risk factors identified. Assessment: 15:30 General: Appears ill, Behavior is cooperative, appropriate for age, anxious. bp Cardiovascular: Rhythm is sinus tachycardia. Respiratory: Airway is patent Respiratory effort is even, unlabored, Breath sounds are clear bilaterally. 17:30 Reassessment: Patient appears in no apparent distress at this time. Patient states bp symptoms have improved. Vital Signs: 15:23 BP 121 / 59; Pulse 138; Resp 22; Temp 101.9(O); Pulse Ox 100% on R/A; Weight 93.89 kg; ll1 Height 5 ft. 6 in. ; Pain 0/10; 16:23 BP 131 / 55; Pulse 122; Resp 16; Pulse Ox 99% ; bp 17:30 BP 113 / 53; Pulse 105; Resp 20; Pulse Ox 100% ; bp 15:23 Body Mass Index 33.41 (93.89 kg, 167.64 cm) ll1 15:23 Pain Scale: Adult ll1 ED Course: 15:09 Patient arrived in ED. ra3 15:14 Joseph Perdue MD is Attending Physician. ec2 15:16 Arm band placed on Patient placed in an exam room, on a stretcher. ll1 15:24 Candelaria Ruth, RN is Primary Nurse. ap3 15:24 Myron Asher, RN is Primary Nurse. jb4 15:24 Triage completed. ll1 15:48 XRAY Chest (1 view) In Process Unspecified. EDMS 16:01 Initial lab(s) drawn, by me, sent to lab. Urine collected: clean catch specimen, bp cloudy, EKG done, by ED staff, reviewed by Joseph Perdue MD COVID swab sent to lab. Flu and/or RSV swab sent to lab. Inserted saline lock: 20 gauge in right forearm, using aseptic technique. Blood collected. Flushed with 10 mL NS. 16:06 CT Head Brain wo Cont In Process Unspecified. EDMS 16:24 Patient has correct armband on for positive identification. bp Administered Medications: 16:00 Drug: NS 0.9% IV 500 ml IV at bolus once; to be given as a bolus over 30 minutes Route: bp IV; Rate: bolus; Site: right forearm; 17:50 Follow up: IV Status: Completed infusion bp 16:01 Drug: Acetaminophen PO 1000 mg PO once Route: PO; bp 17:50 Follow up: Response: No adverse reaction bp 16:01 Drug: Ibuprofen PO 800 mg PO once Route: PO; bp 17:50 Follow up: Response: No adverse reaction bp Outcome: 17:08 Discharge ordered by MD. carranza 17:31 Discharged to home ambulatory, with family, bp 17:31 Condition: stable 17:31 Discharge instructions given to patient, Instructed on discharge instructions, follow up and referral plans. Demonstrated understanding of instructions, follow-up care, 17:49 Patient left the ED. ll1 Signatures: Dispatcher [employer] EDMyron Page RN RN jb4 aJrvis Sears RN RN bp Candelaria Ruth RN RN ap3 Emma Sorensen RN RN ll1 Joseph Perdue MD MD ec2 Francine Kent ra3
--- NOTE | 2024-04-26 17:09 | EDPHYS ---
Physician Documentation [facility] Name: Rosa Isela Cedeño Age: 23 yrs Sex: Female : 2000 Arrival Date: 04/26/2024 Time: 15:07 Bed 5 Private MD: ED Physician Joseph Perdue HPI: 04/26 15:27 This 23 yrs old Female presents to ER via Ambulatory with complaints of ec2 Breathing Difficulty, Slurred Speech. 15:27 Patient arrives today for evaluation of shortness of breath and fevers. Patient reports ec2 that she been having some headaches along with this. Patient reports no vomiting, no diarrhea. No cough or cold symptoms, denies abdominal pain. Denies urinary complaints.. Historical: - Allergies: 15:16 No Known Allergies; ll1 - PMHx: 15:22 None; ll1 - PSHx: 15:22 Tonsillectomy; ll1 - Immunization history:: Adult Immunizations up to date. - Infectious Disease History:: Denies. - Social history:: Smoking status: Reported history of juuling and/or vaping. ROS: 15:27 Constitutional: as per hpi ec2 Exam: 15:27 Constitutional: GEN: NAD Head: atraumatic Eyes: EOMI Ears: External ears are ec2 normal. CV: Tachycardia LUNGS: no respiratory distress, no wheezes or rales or rhonchi ABD: non-distended SKIN: no evidence of rashes MSK: no evidence of trauma. Psych: Anxious individual Vital Signs: 15:23 BP 121 / 59; Pulse 138; Resp 22; Temp 101.9(O); Pulse Ox 100% on R/A; Weight 93.89 kg; ll1 Height 5 ft. 6 in. ; Pain 0/10; 16:23 BP 131 / 55; Pulse 122; Resp 16; Pulse Ox 99% ; bp 17:30 BP 113 / 53; Pulse 105; Resp 20; Pulse Ox 100% ; bp 15:23 Body Mass Index 33.41 (93.89 kg, 167.64 cm) ll1 15:23 Pain Scale: Adult ll1 MDM: 15:18 Medical Screening Exam initiated ec2 15:27 Data reviewed: vital signs, nurses notes. ED course: Patient arrives today for ec2 evaluation of fever and shortness of breath along with headache. Examination is revealing for tachycardic and febrile individual. Will obtain lab work, urine studies, chest x-ray as well as CT scan of the head. Will give the patient crystalloid bolus Tylenol and ibuprofen.. 15:59 ED course: EKG independently reviewed and interpreted by me, shows sinus tachycardia, ec2 rate of 127, no acute ST segment elevations, intervals are nonactionable.. 17:07 ED course: Patient is positive for COVID. Will discharge home have the patient ec2 follow-up PCP. Return precautions given. Instructed to take [id number] medications for antipyretics.. 04/26 15:25 Order name: Basic Metabolic Panel; Complete Time: 17:04 ec2 04/26 15:25 Order name: CBC with Diff; Complete Time: 16:23 ec2 04/26 15:25 Order name: Influenza Screen (a \T\ B); Complete Time: 17:04 ec2 04/26 15:25 Order name: SARS RAPID; Complete Time: 17:04 ec2 04/26 15:27 Order name: UAM; Complete Time: 16:23 ec2 04/26 15:27 Order name: Test, Urine; Complete Time: 16:23 ec2 04/26 16:19 Order name: Urine Culture EDMS 04/26 15:25 Order name: XRAY Chest (1 view); Complete Time: 16:08 ec2 04/26 15:27 Order name: CT Head Brain wo Cont; Complete Time: 16:23 ec2 04/26 15:25 Order name: EKG; Complete Time: 15:25 ec2 04/26 15:25 Order name: Cardiac monitoring; Complete Time: 16:01 ec2 04/26 15:25 Order name: EKG - Nurse/Tech; Complete Time: 16:01 ec2 04/26 15:25 Order name: IV Saline Lock; Complete Time: 16:01 ec2 04/26 15:25 Order name: Labs collected and sent; Complete Time: 16:01 ec2 04/26 15:25 Order name: O2 Per Protocol; Complete Time: 16:01 ec2 04/26 15:25 Order name: O2 Sat Monitoring; Complete Time: 16:01 ec2 Administered Medications: 16:00 Drug: NS 0.9% IV 500 ml IV at bolus once; to be given as a bolus over 30 minutes Route: bp IV; Rate: bolus; Site: right forearm; 17:50 Follow up: IV Status: Completed infusion bp 16:01 Drug: Acetaminophen PO 1000 mg PO once Route: PO; bp 17:50 Follow up: Response: No adverse reaction bp 16:01 Drug: Ibuprofen PO 800 mg PO once Route: PO; bp 17:50 Follow up: Response: No adverse reaction bp Disposition Summary: 04/26/24 17:08 Discharge Ordered Notes: Location: Home ec2 Condition: Stable ec2 Diagnosis - SARS-associated coronavirus as the cause of diseases classified elsewhere ec2 Followup: ec2 - With: Private Physician - When: - Reason: Recheck today's complaints Discharge Instructions: - Discharge Summary Sheet ec2 - Viral Illness, Adult ec2 Forms: - Work release form bd - Medication Reconciliation Form ec2 - Antibiotic Education ec2 - Prescription Opioid Use ec2 - Patient Portal Instructions ec2 - Leadership Thank You Letter ec2 Prescriptions: - Compazine 10 mg Oral Tablet - take 1 tablet ORAL route every 8 hours As needed; 20 tablet; Refills: 0, ec2 Product Selection Permitted Signatures: Dispatcher [employer] Jarvis Dillard RN RN Emma Saenz RN RN ll1 Joseph Perdue MD MD ec2
[2024-04-26 17:54] VITALS: TEMP 101.9
[2024-04-26 17:57] VITALS: BP 113/53; O2SAT 100
--- NOTE | 2024-04-28 15:50 | EKG ---
Test Date: 2024-04-26 Test Time: 15:56:59 [place]: BP MEASUREMENT RESULTS: Intervals: Rate: 127 NV: QRSD: 90 QT: 404 QTc: 587 Brewer: P: NV: QRS: 84 T: 38 INTERPRETIVE STATEMENTS: Accelerated Junctional rhythm Marked ST abnormality, possible inferior subendocardial injury Abnormal ECG No previous ECG available for comparison Electronically Signed On 04-28-24 15:48:04 OBSTETRIC ANAESTHETIST by Joey Britton
== END 2024-04-26 17:49 | disposition home or self-care (01) ==
LOC: ER 15:07
DX: U07.1 COVID-19 (principal)
CPT/HCPCS: 96361; 93005; 87088; 85025; 81001; 87086; 80048; 36415; 81025; 87077; 87186; 87804 ×2; 70450; 71045; 96360; 99284; 87811; J7030